=== PATIENT | female | born 1975 | race Caucasian/White ===

== ENCOUNTER 2023-09-29 12:54 | Day surgery (SDC) | payer BC ==
[2023-09-29] MEDS ORDERED: XYLOCAINE-MPF 1% 5ML SDV IJ ONE (12:55)
[2023-09-29] MEDS ORDERED: Decadron 4 MG INJ IV ONE (12:55)
[2023-09-29] MEDS ORDERED: Sodium Chloride 0.9(Preservative Free) 10 ML IJ ONE (12:55)
[2023-09-29] MEDS ORDERED: DIPRIVAN 200 MG/20 ML IV ONE (14:51)
[2023-09-29] MEDS ORDERED: Lactated Ringers 1,000 ML IV ONE (16:11)
--- NOTE | 2023-09-29 16:40 | XRAY ---
Indication: Left L4-S1 transforaminal PREET. Intraoperative fluoroscopy provided for 32 seconds. 5 digital spot image submitted for interpretation demonstrates posterior needle tips projecting over the expected left L4 and L5 nerve roots. Small amount of contrast injected for needle tip placement. Correlate with intraoperative findings/report.
--- NOTE | 2023-09-29 16:41 | XRAY ---
Indication: Left piriformis injection. Intraoperative fluoroscopy provided for 12 seconds. Single digital spot image submitted for interpretation demonstrates posterior needle tip projecting over the left piriformis. Small amount of contrast injected for needle tip placement. Correlate with intraoperative findings/report.
--- NOTE | 2023-09-29 16:44 | XRAY ---
12 seconds of fluoroscopy was used in surgery for a left piriformis injection.
--- NOTE | 2023-09-29 16:44 | XRAY ---
32 seconds of fluoroscopy was used in surgery for a left L4-S1 transforaminal PREET.
== END 2023-09-29 15:30 | disposition home or self-care (01) ==
LOC: SDC-PAIN 12:54
PROVIDERS: ATTEND Psychiatry & Neurology Pain Medicine
DX: M54.16 Radiculopathy, lumbar region (principal); M79.18 Myalgia, other site
CPT/HCPCS: 20552; 64483; 64484; 72100; 72170; 77002; 77003; J1100; J2704; Q9966

== ENCOUNTER 2023-12-01 15:25 | Day surgery (SDC) | payer BC ==
[2023-12-01] MEDS ORDERED: LIDOCAINE HCL 1% 50 MG/5 ML VL PF IJ ONE (15:26)
[2023-12-01] MEDS ORDERED: SYNVISC 16 MG/2 ML SYRINGE IU ONE (15:26)
--- NOTE | 2023-12-01 18:48 | XRAY ---
Indication: Left knee injection. Intraoperative fluoroscopy provided for 8 seconds. Single digital spot image submitted for interpretation demonstrates needle tip projecting over left femur intercondylar notch. Small amount of contrast injected for needle tip placement. Correlate with intraoperative findings/report.
--- NOTE | 2023-12-02 09:14 | XRAY ---
8 seconds of fluoroscopy used in surgery for a left intra-articular knee injection.
== END 2023-12-01 17:14 | disposition home or self-care (01) ==
LOC: SDC-PAIN 15:25
PROVIDERS: ATTEND Psychiatry & Neurology Pain Medicine
DX: M17.12 Unilateral primary osteoarthritis, left knee (principal)
CPT/HCPCS: 20610; 73560; 77002; J2001; J7325; Q9966

== ENCOUNTER 2023-12-08 15:51 | Day surgery (SDC) | payer BC ==
[2023-12-08] MEDS ORDERED: SYNVISC 16 MG/2 ML SYRINGE IU ONE (15:52)
[2023-12-08] MEDS ORDERED: LIDOCAINE HCL 1% 50 MG/5 ML VL PF IJ ONE (15:52)
--- NOTE | 2023-12-08 19:11 | XRAY ---
Indication: Left knee injection. Intraoperative fluoroscopy provided for 12 seconds. Single digital spot image submitted for interpretation demonstrates needle tip projecting over left femur intercondylar notch. Small amount of contrast injected for needle tip placement. Correlate with intraoperative findings/report.
--- NOTE | 2023-12-09 10:02 | XRAY ---
12 seconds of fluoroscopy was used in surgery for a left intra-articular knee injection.
== END 2023-12-08 18:34 | disposition home or self-care (01) ==
LOC: SDC-PAIN 15:51
PROVIDERS: ATTEND Psychiatry & Neurology Pain Medicine
DX: M17.12 Unilateral primary osteoarthritis, left knee (principal)
CPT/HCPCS: 20610; 73560; 77002; J2001; J7325; Q9966

== ENCOUNTER 2023-12-15 15:38 | Day surgery (SDC) | payer BC ==
[2023-12-15] MEDS ORDERED: LIDOCAINE HCL 1% 50 MG/5 ML VL PF IJ ONE (15:39)
--- NOTE | 2023-12-15 18:10 | XRAY ---
8 seconds of fluoroscopy used in surgery for a left intra-articular knee injection.
== END 2023-12-15 17:31 | disposition home or self-care (01) ==
LOC: SDC-PAIN 15:38
PROVIDERS: ATTEND Psychiatry & Neurology Pain Medicine
DX: M17.12 Unilateral primary osteoarthritis, left knee (principal)
CPT/HCPCS: 20610; 73560; 77002; J2001; Q9966

== ENCOUNTER 2024-05-17 14:37 | Day surgery (SDC) | payer BC ==
[2024-05-17] MEDS ORDERED: LIDOCAINE HCL 1% AMPUL 5 ML IJ ONE (14:38)
[2024-05-17] MEDS ORDERED: dexAMETHasone sodium phosphate IJ ONE (14:38)
[2024-05-17] MEDS ORDERED: Sodium Chloride 0.9(Preservative Free) 10 ML IJ ONE (14:38)
[2024-05-17] MEDS ORDERED: propofoL IV ONE (16:44)
--- NOTE | 2024-05-17 18:49 | XRAY ---
Indication: Left piriformis injection. Intraoperative fluoroscopy provided for 8 seconds. Single digital spot image submitted for interpretation demonstrates posterior needle tip projecting over left piriformis. Small amount of contrast injected for needle tip placement. Correlate with intraoperative findings/report.
--- NOTE | 2024-05-17 18:51 | XRAY ---
Indication: Left L4-S1 transforaminal PREET. Intraoperative fluoroscopy provided for 19 seconds. 4 digital spot image submitted for interpretation demonstrates posterior needle tips projecting over left L4 and L5 nerve roots. Small amount of contrast injected for needle tip placement. Correlate with intraoperative findings/report.
--- NOTE | 2024-05-17 19:09 | XRAY ---
8 seconds of fluoroscopy were used for a left piriformis muscle injection.
--- NOTE | 2024-05-17 19:09 | XRAY ---
19 seconds of fluoroscopy were used for a left L4-S1 transforaminal PREET.
== END 2024-05-17 17:12 | disposition home or self-care (01) ==
LOC: SDC-PAIN 14:37
PROVIDERS: ATTEND Psychiatry & Neurology Pain Medicine
DX: M54.16 Radiculopathy, lumbar region (principal); M79.18 Myalgia, other site
CPT/HCPCS: 20552; 64483; 64484; 72100; 72170; 77002; 77003; J1100; J2704; Q9966